=== PATIENT | female | born 1955 | race Caucasian/White ===

== ENCOUNTER 2017-06-14 04:26 | Observation (INO) | payer OTHER, SELFPAY ==
[2017-06-14 04:35] VITALS: BMI 48.5
[2017-06-14] MEDS ORDERED: Acetaminophen 325 MG TAB PO PRN (05:50)
[2017-06-14 06:00] LABS: Troponin I Less than 0.010 ng/mL (< 0.028)
[2017-06-14 08:06] VITALS: BP 141/69; TEMP 98.5
[2017-06-14 09:10] LABS: Troponin I Less than 0.010 ng/mL (< 0.028)
[2017-06-14] MEDS ORDERED: Nitroglycerin 0.4 MG TAB (25 Tab Bottle) PO PRN (09:47)
[2017-06-14] MEDS ORDERED: Ondansetron HCl/PF 4 MG/2 ML Vial IVP PRN (09:47)
[2017-06-14] MEDS ORDERED: Calcium Carbonate 500 MG ChewTAB PO PRN (09:47)
[2017-06-14] MEDS ORDERED: Furosemide 20 MG TAB PO PRN (09:51)
[2017-06-14] MEDS ORDERED: Dextrose 50% Abboject 50 ML SYRINGE SLOW IVP PRN (09:52)
[2017-06-14] MEDS ORDERED: Dextrose 5% in Water 1,000 ML IV PRN (09:52)
[2017-06-14] MEDS ORDERED: HumaLOG 300 UNITS/3 ML VIAL SC PRN (09:52)
[2017-06-14] MEDS ORDERED: Sodium Chloride 0.9% 1,000 ML IV SCH (10:00)
[2017-06-14] MEDS ORDERED: Aspirin 325 MG TAB PO SCH (11:15)
[2017-06-14 12:33] LABS: Troponin I Less than 0.010 ng/mL (< 0.028)
--- NOTE | 2017-06-14 14:21 | HP ---
CHIEF COMPLAINT: Chest pain, shortness of breath and on and off diarrhea for the last 3 weeks. PRIMARY CARE PHYSICIAN: Chris Moya M.D. HISTORY OF PRESENT ILLNESS: This is a 62-year-old pleasant lady who was apparently in her usual sta te of health. She suddenly had a feeling of choking and some chest pressure at 9:45. She called pa ramedics, they gave her some oxygen, which helped her a little bit, but the chest pain and shortness of breath went on till 2:00 in the morning. She was taken to an outside emergency room, where a CT scan of the chest with PE protocol was done which was negative for PE. Initial blood work was all normal. UA was normal. She was sent to our facility for further evaluation of the chest pain. The patient denies any nausea, vomiting, fever, or chills. Admits to diarrhea for the last 3 weeks on and off, explosive sometimes, associated with food. No fever, chills or blood in the stools. The p atient right now does not have any fever or chills as well. PAST MEDICAL HISTORY: Significant for migraine headaches, spinal stenosis, herniated disk at L3-L4, incontinence, arthritis, diabetes, hypertension, allergies, and GERD. MEDICATIONS: Include sumatriptan, metformin, lisinopril, Coreg, glimepiride, Lasix, topiramate - wh ich she takes on and off, metolazone - usually if she starts swelling up. PAST SURGICAL HISTORY: Carpal tunnel surgery, right knee arthroscopy, tonsillectomy and D\T\C in past. ALLERGIES: ERYTHROMYCIN, SULFA, HYDROCODONE and PENICILLIN. FAMILY HISTORY: Negative for diabetes and hypertension. SOCIAL HISTORY: Does not smoke, drink or do any recreational drugs. REVIEW OF SYSTEMS: Significant for chest pain, shortness of breath, and diarrhea. Otherwise, no fe evan, no chills, no headache, no appetite and latencies. No cough, no dysuria, no polyuria. No pako ry or mood changes. No neck pain. PHYSICAL EXAMINATION: VITAL SIGNS: Blood pressure is 141/65, afebrile, pulse is 93 and breathing comfortably on room air. GENERAL: Patient is lying in bed, in no apparent distress. HEENT: Atraumatic and normocephalic. Pupils are equally round and reactive to light. Extraocular movements are intact. Mucous membranes are moist. NECK: Supple. No JVD. CHEST: Breath sounds heard. There are no rales or rhonchi. HEART: S1 and S2 normal. No murmurs or gallops. ABDOMEN: Soft and obese. Bowel sounds are present. No tenderness. EXTREMITIES: No cyanosis, clubbing or edema. Distal pulses present. NEUROLOGICAL: Alert, awake and oriented. No cranial deficits. No sensorimotor deficits. LABORATORY DATA: WBC count is 8.2. Troponin 3 sets are negative. Potassium 4.3 and creatinine is 1.1. UA is negative. ASSESSMENT AND PLAN: 1. Chest pain associated with shortness of breath. We will rule out. I will do a stress test and trend troponins. Rule out acute coronary syndrome. However, patient has a history of allergies and could be reactive airway disease. We will put her on neb treatments and Claritin as well from home medications. If stress test is negative, we will discharge the patient with outpatient follow up w ith pulmonary function test. 2. Obesity with a BMI of 48.5. Patient has been counseled. 3. Diabetes. Poor control has been counseled. 4. Hypertension. Continue home medications, appears to be stable. 5. Low back pain secondary to herniated disk, stable. 6. Incontinence, stable. 7. Diarrhea. I will do stool cultures. 8. Gastroesophageal reflux disease, stable. 9. Sequential compression devices for deep venous thrombosis prophylaxis. I will follow the labs a nd do the need for.
[2017-06-14] MEDS ORDERED: Non-Formulary Item 1 EACH (Metformin Hcl [Metformin Hcl] 1,000 MG) PO SCH (17:00)
--- NOTE | 2017-06-14 19:15 | DIS ---
DATE OF ADMISSION: 06/14/2017 at 3:00 a.m. DATE OF DISCHARGE: 06/14/2017 at 12:00 p.m. DISCHARGE DIAGNOSES: 1. Shortness of breath, most probably secondary to reactive airway disease. 2. Atypical chest pain, possibly secondary to gastroesophageal reflux disease, resolved. 3. Obesity with a body mass index of 48.5. Patient has been counseled. 4. Chronic diarrhea. Outpatient workup. 5. History of migraine, stable. 6. History of spinal stenosis, stable. 7. History of herniated disk, stable. 8. History of incontinence, stable. 9. Arthritis, stable. 10. Diabetes, stable. 11. Hypertension, stable. 12. Allergy, stable. 13. Gastroesophageal reflux disease, stable. DISCHARGE MEDICATIONS: The patient's discharge medications include all home medications plus albute rol nebs, HFA 1 puff q.6 hours p.r.n. for shortness of breath, also darifenacin 7.5 p.o. daily and a spirin 81 mg p.o. daily. BRIEF HOSPITAL COURSE: This is a 62-year-old pleasant lady, who came into the hospital because of s udden onset shortness of breath. Please refer to my H\T\P for further details. By the time, she wa s evaluated at the emergency room at the outside facility, her shortness of breath resolved. CTA do ne there showed no PE. Patient's UA was negative. All workup was negative with troponin. She was sent to our hospital for further evaluation of atypical chest pain. The patient was put on telemetr y. Serial troponins were done, which were all negative. The patient was recommended a stress test, which she refused, as she could not lie down. Right now, she is clinically stable and feeling much better. Her shortness of breath and other symptoms have all resolved. She is medically stable to be discharged in my view with outpatient followup with PCP. I have recommended that she have a pulm onary function test as an outpatient and follow up with the table runner; I have also recommended t hat she follow up with her substance abuse prevention coordinator. Her EKG did show some inferior wall infarct with age indet erminate age. Right now, she is asymptomatic with negative troponins, and I am comfortable sending her home with outpatient workup. Patient was asked to come back to the emergency room in case sympt oms recur. I have also counseled her about losing weight and diet control about diabetes and high blood pressure. She understands all this. She is right now medically stable to be discharged and i s asked to follow up with PCP. She is asked to come back to the emergency room in case symptoms rec ur. Total time for this discharge took 35 minutes.
[2017-06-14] MEDS ORDERED: Famotidine 20 MG TAB PO SCH (21:00)
[2017-06-14] MEDS ORDERED: Carvedilol 6.25 MG TAB PO SCH (21:00)
[2017-06-14] MEDS ORDERED: Loratadine/Pseudoephedrine 10/240 mg Tablet PO PRN (23:59)
--- NOTE | 2017-06-15 06:20 | EKG ---
Test Reason : Blood Pressure : / mmHG Vent. Rate : 089 BPM Atrial Rate : 089 BPM P-R Int : 200 ms QRS Dur : 088 ms QT Int : 366 ms P-R-T Axes : 055 -10 043 degrees QTc Int : 445 ms Normal sinus rhythm Low voltage QRS (Borderline) Inferior infarct , age undetermined (possibly due to QS in III and aVF) Abnormal ECG No previous ECGs available Confirmed by MERCEDES SYKES ([id number]) on 06/15/2017 6:19:49 AM Referred By: SUSAN Confirmed By:MERCEDES SYKES
[2017-06-15] MEDS ORDERED: Glimepiride 1 MG TAB PO SCH ×2 (08:00)
[2017-06-15] MEDS ORDERED: Lisinopril 10 MG TAB PO SCH (09:00)
[2017-06-15] MEDS ORDERED: Aspirin 325 MG TAB PO SCH (09:00)
[2017-06-15] MEDS ORDERED: Loratadine/Pseudoephedrine 10/240 mg Tablet PO SCH (09:00)
== END 2017-06-14 13:33 | disposition home or self-care (01) ==
LOC: 2SW 04:26 → INTOOBSV 04:26
PROVIDERS: ADMIT Internal Medicine; ATTEND Internal Medicine
DX: R06.02 Shortness of breath (principal); R07.89 Other chest pain; K52.9 Noninfective gastroenteritis and colitis, unspecified; G43.909 Migraine, unspecified, not intractable, without status migrainosus; M19.90 Unspecified osteoarthritis, unspecified site; E11.9 Type 2 diabetes mellitus without complications; I10 Essential (primary) hypertension; K21.9 Gastro-esophageal reflux disease without esophagitis; M48.00 Spinal stenosis, site unspecified; R32 Unspecified urinary incontinence; M51.06 Intervertebral disc disorders with myelopathy, lumbar region; E66.9 Obesity, unspecified; Z68.42 Body mass index [BMI] 45.0-49.9, adult; Z88.1 Allergy status to other antibiotic agents; Z88.2 Allergy status to sulfonamides; Z88.0 Allergy status to penicillin; Z88.5 Allergy status to narcotic agent; Z79.84 Long term (current) use of oral hypoglycemic drugs; Z79.899 Other long term (current) drug therapy; Z98.890 Other specified postprocedural states
CPT/HCPCS: 36415; 36416; 84484; 93005; 93010; G0378

== ENCOUNTER 2018-12-30 15:30 | Outpatient (CLI) | payer OTHER ==
--- NOTE | 2018-12-30 16:07 | MMO ---
Bilateral MAMMO Bilat Screen [facility]. CLINICAL HISTORY: Patient is 63 years old and is seen for screening. The patient has the following family history of breast cancer: sister, at age 50. The patient has no personal history of cancer. VIEWS: The views performed were: bilateral craniocaudal with tomosynthesis and bilateral mediolateral oblique with tomosynthesis. FILMS COMPARED: The present examination has been compared to prior imaging studies performed on 10/16/1998, and at [facility] on 05/08/2003, 08/03/2004, 08/18/2004, 06/21/2006, 07/22/2007, 09/17/2008, 09/20/2009, 10/11/2010, 10/17/2011, 10/21/2012, 10/18/2015 and 04/10/2017. MAMMOGRAM FINDINGS: There are scattered fibroglandular densities. There are no suspicious masses, suspicious calcifications, or new areas of architectural distortion. IMPRESSION: THERE IS NO MAMMOGRAPHIC EVIDENCE OF MALIGNANCY. A ROUTINE FOLLOW-UP MAMMOGRAM IN 1 YEAR IS RECOMMENDED. THE RESULTS OF THIS EXAM WERE SENT TO THE PATIENT. ACR BI-RADS Category 1 - Negative MAMMOGRAPHY NOTE: 1. A negative mammogram report should not delay a biopsy if a dominant of clinically suspicious mass is present. 2. Approximately 10% to 15% of breast cancers are not detected by mammography. 3. Adenosis and dense breasts may obscure an underlying neoplasm.
== END 2018-12-30 15:31 | disposition home or self-care (01) ==
LOC: BICMAMMO 15:30
PROVIDERS: ATTEND Obstetrics & Gynecology
DX: Z12.31 Encounter for screening mammogram for malignant neoplasm of breast (principal); Z80.3 Family history of malignant neoplasm of breast
CPT/HCPCS: 77063; 77067

== ENCOUNTER 2020-06-29 15:12 | Outpatient (CLI) | payer OTHER ==
--- NOTE | 2020-06-29 16:25 | MMO ---
Bilateral MAMMO Bilat Screen [facility]. CLINICAL HISTORY: Patient is 65 years old and is seen for screening. The patient has the following family history of breast cancer: sister, at age 50. The patient has no personal history of cancer. VIEWS: The views performed were: bilateral craniocaudal with tomosynthesis and bilateral mediolateral oblique with tomosynthesis. FILMS COMPARED: The present examination has been compared to prior imaging studies performed at [facility] on 10/21/2012, 10/18/2015, 04/10/2017 and 12/30/2018. This study has been interpreted with the assistance of computer-aided detection. MAMMOGRAM FINDINGS: There are scattered fibroglandular densities. New 5 mm nodular density posterior mid right breast. In the left breast, there are no suspicious masses, calcifications or areas of architectural distortion. IMPRESSION: FINDING IN THE RIGHT BREAST REQUIRES ADDITIONAL EVALUATION. SPOT COMPRESSION IS RECOMMENDED. AN ULTRASOUND EXAM IS RECOMMENDED. ADDITIONAL IMAGING. THE RESULTS OF THIS EXAM WERE SENT TO THE PATIENT. ACR BI-RADS Category 0 - Incomplete: Need additional imaging evaluation. [facility] will notify the patient of the need for additional imaging services. MAMMOGRAPHY NOTE: 1. A negative mammogram report should not delay a biopsy if a dominant of clinically suspicious mass is present. 2. Approximately 10% to 15% of breast cancers are not detected by mammography. 3. Adenosis and dense breasts may obscure an underlying neoplasm. Reported by: DAVID MARVIN MD Electonically Signed: [id number]
== END 2020-06-29 15:13 | disposition home or self-care (01) ==
LOC: BICMAMMO 15:12
PROVIDERS: ATTEND Obstetrics & Gynecology
DX: Z12.31 Encounter for screening mammogram for malignant neoplasm of breast (principal); Z80.3 Family history of malignant neoplasm of breast
CPT/HCPCS: 77063; 77067

== ENCOUNTER 2020-07-09 09:53 | Outpatient (CLI) | payer OTHER ==
--- NOTE | 2020-07-09 10:58 | MMO ---
Right Breast MAMMO Unilat Diag [facility]. CLINICAL HISTORY: Patient is 65 years old and is seen for diagnostic exam. The patient has the following family history of breast cancer: sister, at age 50. The patient has no personal history of cancer. VIEWS: The views performed were: right craniocaudal spot compression with tomosynthesis; right mediolateral oblique spot compression with tomosynthesis; and right mediolateral with tomosynthesis. FILMS COMPARED: The present examination has been compared to prior imaging studies performed at [facility] on 04/10/2017, 12/30/2018, 06/29/2020 and 07/09/2020. This study has been interpreted with the assistance of computer-aided detection. MAMMOGRAM FINDINGS: There are scattered fibroglandular densities. There is an equal density, oval mass measuring 5 millimeters with circumscribed margins seen in the right breast at 7 o'clock. The mass was shown to be a cyst on ultrasound. There are no suspicious masses, suspicious calcifications, or new areas of architectural distortion. IMPRESSION: THERE IS NO MAMMOGRAPHIC EVIDENCE OF MALIGNANCY. A ROUTINE FOLLOW-UP MAMMOGRAM IN 1 YEAR IS RECOMMENDED. THE RESULTS OF THIS EXAM WERE SENT TO THE PATIENT. ACR BI-RADS Category 2 - Benign finding MAMMOGRAPHY NOTE: 1. A negative mammogram report should not delay a biopsy if a dominant of clinically suspicious mass is present. 2. Approximately 10% to 15% of breast cancers are not detected by mammography. 3. Adenosis and dense breasts may obscure an underlying neoplasm. Reported by: EDITH RIZVI MD Electonically Signed: [id number]
--- NOTE | 2020-07-09 10:59 | ULT ---
EXAM: US Breast Limited Rt PROVIDED CLINICAL HISTORY: Abnormal mammogram COMPARISON: Diagnostic mammogram performed concurrently FINDINGS: Limited sonographic interrogation was performed of the right breast in the region of mammographic con cern. A corresponding simple cyst is demonstrated. No concerning sonographic abnormality is evident. IMPRESSION: No concerning sonographic findings. Return to annual screening. BI-RADS 2 -- benign findings
== END 2020-07-09 09:54 | disposition home or self-care (01) ==
LOC: BICMAMMO 09:53
PROVIDERS: ATTEND Obstetrics & Gynecology
DX: R92.2 Inconclusive mammogram (principal)
CPT/HCPCS: G0279

== ENCOUNTER 2021-05-30 12:19 | Outpatient (CLI) | payer MEDICARE ==
[~2021-05-30 12:19] MED LIST: Iopamidol 370 76% 100 ML VIAL ONE
== END 2021-05-30 12:20 | disposition home or self-care (01) ==
LOC: BICCT 12:19
PROVIDERS: ATTEND Urology
DX: R31.29 Other microscopic hematuria (principal); K63.89 Other specified diseases of intestine
CPT/HCPCS: 74178

== ENCOUNTER 2021-06-24 09:32 | Outpatient (CLI) | payer MEDICARE ==
[2021-06-24] MEDS ORDERED: Iopamidol-370 76% 500 ML 1 ML ONE (09:42)
== END 2021-06-24 09:33 | disposition home or self-care (01) ==
LOC: CT 09:32
PROVIDERS: ATTEND Physician Assistant Medical
DX: R93.3 Abnormal findings on diagnostic imaging of other parts of digestive tract (principal); R91.8 Other nonspecific abnormal finding of lung field; R91.1 Solitary pulmonary nodule; I25.10 Atherosclerotic heart disease of native coronary artery without angina pectoris; I70.0 Atherosclerosis of aorta; J98.4 Other disorders of lung
CPT/HCPCS: 74178; 82565; Q9967

== ENCOUNTER 2021-07-18 11:26 | Outpatient (CLI) | payer MEDICARE | END 2021-07-18 11:27 | disposition home or self-care (01) | LOC: BICMAMMO 11:26 | PROVIDERS: ATTEND Obstetrics & Gynecology | DX: Z12.31 Encounter for screening mammogram for malignant neoplasm of breast (principal); Z80.3 Family history of malignant neoplasm of breast | CPT/HCPCS: 77063; 77067 ==

== ENCOUNTER 2022-02-01 07:56 | Outpatient (CLI) | payer MEDICARE | END 2022-02-01 07:57 | disposition home or self-care (01) | LOC: CT 07:56 | PROVIDERS: ATTEND Surgery | DX: K38.8 Other specified diseases of appendix (principal); K63.89 Other specified diseases of intestine | CPT/HCPCS: 74177; 82565 ==

== ENCOUNTER 2022-07-31 08:12 | Outpatient (CLI) | payer MEDICARE | END 2022-07-31 08:13 | disposition home or self-care (01) | LOC: BICMAMMO 08:12 | PROVIDERS: ATTEND Obstetrics & Gynecology | DX: Z12.31 Encounter for screening mammogram for malignant neoplasm of breast (principal); Z80.3 Family history of malignant neoplasm of breast | CPT/HCPCS: 77063; 77067 ==

== ENCOUNTER 2022-08-02 10:06 | Outpatient (CLI) | payer MEDICARE | END 2022-08-02 10:07 | disposition home or self-care (01) | LOC: BICCT 10:06 | PROVIDERS: ATTEND Surgery | DX: K38.9 Disease of appendix, unspecified (principal); K57.30 Diverticulosis of large intestine without perforation or abscess without bleeding; R91.1 Solitary pulmonary nodule | CPT/HCPCS: 74177; 82565 ==

== ENCOUNTER 2022-08-14 12:45 | Inpatient (IN) | payer MEDICARE ==
[2022-08-23] MEDS ORDERED: Bupivacaine/Epinephrine 0.25% 30 ML VIAL ONE (11:57)
[2022-08-23] MEDS ORDERED: Midazolam HCl 5 mg/5 ml Vial ONE (12:15)
[2022-08-23] MEDS ORDERED: Fentanyl 250 MCG/5 ML VIAL ONE (12:15)
[2022-08-23] MEDS ORDERED: cefOXitin 2 GM VIAL ONE (12:21)
[2022-08-23] MEDS ORDERED: Sodium Chloride 0.9% 100 ML ONE (12:21)
[2022-08-23] MEDS ORDERED: Midazolam HCl 2 mg/2 ml Vial ONE (12:23)
[2022-08-23 12:28] LABS: SARS-CoV-2 NAA Rapid Test Not Detected (NotDetected)
[2022-08-23] MEDS ORDERED: Levofloxacin 500 mg/D5W 100 ml Premix Bag ONE (12:33)
[2022-08-23] MEDS ORDERED: Rocuronium Bromide 10 MG/ML (10ML VIAL) ONE (12:43)
[2022-08-23] MEDS ORDERED: Metoclopramide HCl 10 MG/2 ML VIAL ONE (12:43)
[2022-08-23] MEDS ORDERED: Phenylephrine 10 MG/ML VIAL ONE (12:43)
[2022-08-23] MEDS ORDERED: Ondansetron PF 4 MG/2 ML Vial ONE (12:43)
[2022-08-23] MEDS ORDERED: ePHEDrine 50 MG/ML VIAL ONE (12:43)
[2022-08-23] MEDS ORDERED: Dexamethasone 20 MG/5 ML VIAL ONE (12:43)
[2022-08-23] MEDS ORDERED: NEOSTIGMINE 3 MG/3 ML SYR 3 MG/3 ML SYRINGE ONE (12:43)
[2022-08-23] MEDS ORDERED: GLYCOPYRROLATE/PF 0.2 MG/ML VIAL ONE (12:43)
[2022-08-23] MEDS ORDERED: PROPOFOL 200 MG/20 ML VIAL ONE (12:43)
[2022-08-23] MEDS ORDERED: Promethazine HCl 25 MG/ML VIAL ONE (14:47)
[2022-08-23] MEDS ORDERED: hydrALAZINE 20 MG/ML VIAL SLOW IVP PRN (15:00)
[2022-08-23] MEDS ORDERED: Promethazine HCl 25 MG/ML VIAL IM PRN ×3 (15:00→15:17)
[2022-08-23] MEDS ORDERED: Furosemide 20 MG TAB PO PRN (15:00)
[2022-08-23] MEDS ORDERED: Dextrose 50% Abboject 50 ML SYRINGE SLOW IVP PRN (15:00)
[2022-08-23] MEDS ORDERED: Dextrose 5% in Water 1,000 ML IV PRN (15:00)
[2022-08-23] MEDS ORDERED: Ondansetron PF 4 MG/2 ML Vial IVP PRN ×2 (15:00→15:17)
[2022-08-23] MEDS ORDERED: diphenhydrAMINE 50 MG/ML VIAL IM PRN (15:17)
[2022-08-23] MEDS ORDERED: diphenhydrAMINE 50 MG/ML VIAL IVP PRN (15:17)
[2022-08-23] MEDS ORDERED: Promethazine HCl 25 MG/ML VIAL IVPB PRN (15:17)
[2022-08-23] MEDS ORDERED: Naloxone HCl 0.4 mg/ml Vial IV PRN (15:17)
[2022-08-23] MEDS ORDERED: FENTANYL 500 MCG/10 ML VIAL 2,000 MCG in Sodium Chloride 0.9% 60 ML IV PRN (15:17)
[2022-08-23] MEDS ORDERED: Zolpidem Tartrate 5 MG TAB PO PRN (15:17)
[2022-08-23] MEDS ORDERED: Ondansetron HCl/PF 4 MG/2 ML Vial IVP PRN (15:17)
[2022-08-23] MEDS ORDERED: FENTANYL 50 MCG/ML 1 ML VIAL ONE (15:20)
[2022-08-23] MEDS ORDERED: Communication Order-Pharmacy FS SCH (15:30)
[2022-08-23] MEDS ORDERED: SUMAtriptan Succinate 50 MG TAB PO PRN (15:36)
[2022-08-23 18:48] VITALS: BMI 40.1
[2022-08-23] MEDS: D5 1/2 NS w/20 mEq KCL 1,000 ML IV SCH ×2 (19:33→23:30)
[2022-08-23] MEDS: Topiramate 25 MG TAB PO SCH (20:50)
[2022-08-23] MEDS: Famotidine/PF 20 mg/2ml Vial SLOW IVP SCH (20:50)
[2022-08-23] MEDS: Famotidine 20 MG TAB PO SCH (20:53)
[2022-08-23] MEDS: Carvedilol 6.25 MG TAB PO SCH (20:54)
[2022-08-23] MEDS: diphenhydrAMINE 25 MG CAP PO PRN (21:00)
[2022-08-24] MEDS: D5 1/2 NS w/20 mEq KCL 1,000 ML IV SCH ×3 (03:37→18:14)
[2022-08-24 06:03] LABS: #Lymphocytes 1.3 thou/uL (1.20-3.40); #Monocytes 1.3 thou/uL (0.11-0.59); #Neutrophils 13.3 thou/uL (1.40-6.50); %Eosinophils 0.1 % (0.0-10.0); %Lymphocytes 8.3 % (21.0-51.0); %Monocytes 8.4 % (0.0-10.0); %Neutrophils 83.2 % (42.0-75.0); Hemoglobin 10.9 g/dL (12.0-16.0); Mean Corpuscular HGB CONC 33.8 g/dL (32.0-36.0); Mean Corpuscular Volume 97.5 fl (78.0-98.0); Mean Platelet Volume 6.8 fL (7.4-10.4); Platelet Count 222 10x3/uL (130-400); RBC Distribution Width 11.8 % (11.5-14.5)
[2022-08-24 06:15] LABS: Anion Gap 11 mmol/L (10-20); BUN (Urea Nitrogen) 18 mg/dL (9.8-20.1); Calc. Creatinine Clearance 84 mL/min (70-130); Calcium 8.3 mg/dL (7.8-10.44); Carbon Dioxide 21 mmol/L (23-31); Chloride 106 mmol/L (98-107); Estimated GFR 51; Glucose 207 mg/dL (80-115); Potassium 4.2 mmol/L (3.5-5.1); Sodium 134 mmol/L (136-145)
[2022-08-24 07:12] LABS: Bacteria/HPF None Seen HPF (None Seen); Bilirubin Negative (Negative); Blood, Urine 2+ (Negative); Clarity Cloudy (Clear); Glucose, Urine (Dipstick) Normal (Negative); Ketone, Urine Negative (Negative); Leukocyte 25 Leu/uL (Negative); Nitrite Negative (Negative); Protein, Urine (Dipstick) 20 mg/dL (Neg-Trace); Specific Gravity, Urine 1.027 (1.002-1.036); Squamous Epithelial 0-3 HPF (0-3); Urobilinogen Normal mg/dL (Less than 2); pH, Urine 5.5 (5.0-9.0)
[2022-08-24] MEDS: Oxybutynin ER 5 MG TAB PO SCH (08:55)
[2022-08-24] MEDS: Lisinopril 10 MG TAB PO SCH (08:55)
[2022-08-24] MEDS: Carvedilol 6.25 MG TAB PO SCH ×2 (08:56→21:54)
[2022-08-24] MEDS: Famotidine 20 MG TAB PO SCH ×2 (08:56→21:56)
[2022-08-24] MEDS: Famotidine/PF 20 mg/2ml Vial SLOW IVP SCH ×2 (08:57→21:57)
[2022-08-24] MEDS: Topiramate 25 MG TAB PO SCH ×3 (08:57→21:59)
[2022-08-24] MEDS ORDERED: Topiramate [Trokendi Xr] 100 MG Cap.Er.24h PO SCH (09:00)
[2022-08-24] MEDS: diphenhydrAMINE 25 MG CAP PO PRN (22:16)
[2022-08-25] MEDS: D5 1/2 NS w/20 mEq KCL 1,000 ML IV SCH ×2 (02:04→16:43)
[2022-08-25] MEDS: Oxybutynin ER 5 MG TAB PO SCH (09:30)
[2022-08-25] MEDS: Famotidine/PF 20 mg/2ml Vial SLOW IVP SCH ×2 (09:31→20:30)
[2022-08-25] MEDS: Carvedilol 6.25 MG TAB PO SCH ×2 (09:31→20:30)
[2022-08-25] MEDS: Lisinopril 10 MG TAB PO SCH (09:31)
[2022-08-25] MEDS: Famotidine 20 MG TAB PO SCH ×2 (09:31→20:30)
[2022-08-25] MEDS: Topiramate 25 MG TAB PO SCH ×2 (09:32→20:35)
[2022-08-25] MEDS ORDERED: FENTANYL 50 MCG/ML 1 ML VIAL SLOW IVP PRN (12:12)
[2022-08-25] MEDS: traMADol HCl 50 MG TAB PO PRN (18:55)
[2022-08-26] MEDS: traMADol HCl 50 MG TAB PO PRN ×2 (04:09→20:41)
[2022-08-26] MEDS: Topiramate 25 MG TAB PO SCH ×2 (08:58→20:44)
[2022-08-26] MEDS: Carvedilol 6.25 MG TAB PO SCH ×2 (08:59→20:43)
[2022-08-26] MEDS: Famotidine 20 MG TAB PO SCH ×2 (08:59→20:42)
[2022-08-26] MEDS: Lisinopril 10 MG TAB PO SCH (08:59)
[2022-08-26] MEDS: Oxybutynin ER 5 MG TAB PO SCH (09:00)
[2022-08-26] MEDS: Famotidine/PF 20 mg/2ml Vial SLOW IVP SCH ×2 (09:00→20:44)
[2022-08-26] MEDS: HumaLOG 300 UNITS/3 ML VIAL SC PRN (18:00)
[2022-08-27] MEDS ORDERED: Nitroglycerin 0.4 MG TAB (25 Tab Bottle) ONE (05:40)
[2022-08-27] MEDS: HumaLOG 300 UNITS/3 ML VIAL SC PRN (06:03)
[2022-08-27] MEDS: traMADol HCl 50 MG TAB PO PRN ×2 (06:08→17:03)
[2022-08-27] MEDS: Carvedilol 6.25 MG TAB PO SCH ×2 (09:27→21:03)
[2022-08-27] MEDS: Famotidine 20 MG TAB PO SCH ×2 (09:27→21:02)
[2022-08-27] MEDS: Lisinopril 10 MG TAB PO SCH (09:27)
[2022-08-27] MEDS: Oxybutynin ER 5 MG TAB PO SCH (09:27)
[2022-08-27] MEDS: Famotidine/PF 20 mg/2ml Vial SLOW IVP SCH ×2 (09:28→21:03)
[2022-08-27] MEDS: Topiramate 25 MG TAB PO SCH ×2 (09:28→21:03)
[2022-08-28] MEDS: Oxybutynin ER 5 MG TAB PO SCH (09:06)
[2022-08-28] MEDS: Carvedilol 6.25 MG TAB PO SCH ×2 (09:07→21:44)
[2022-08-28] MEDS: Famotidine 20 MG TAB PO SCH ×2 (09:07→21:45)
[2022-08-28] MEDS: Lisinopril 10 MG TAB PO SCH (09:07)
[2022-08-28] MEDS: Famotidine/PF 20 mg/2ml Vial SLOW IVP SCH ×2 (09:08→21:46)
[2022-08-28] MEDS: Topiramate 25 MG TAB PO SCH ×2 (09:09→21:46)
[2022-08-29] MEDS: Famotidine/PF 20 mg/2ml Vial SLOW IVP SCH ×2 (07:55→19:19)
[2022-08-29] MEDS: Oxybutynin ER 5 MG TAB PO SCH (07:59)
[2022-08-29] MEDS: Carvedilol 6.25 MG TAB PO SCH ×2 (07:59→20:41)
[2022-08-29] MEDS: Famotidine 20 MG TAB PO SCH ×2 (07:59→20:41)
[2022-08-29] MEDS: traMADol HCl 50 MG TAB PO PRN ×2 (07:59→16:33)
[2022-08-29] MEDS: Lisinopril 10 MG TAB PO SCH (08:00)
[2022-08-29] MEDS: Topiramate 25 MG TAB PO SCH ×2 (08:00→19:19)
[2022-08-29] MEDS: HumaLOG 300 UNITS/3 ML VIAL SC PRN (12:08)
[2022-08-30] MEDS: HumaLOG 300 UNITS/3 ML VIAL SC PRN (06:01)
[2022-08-30] MEDS: traMADol HCl 50 MG TAB PO PRN ×2 (06:51→21:27)
[2022-08-30] MEDS: Famotidine 20 MG TAB PO SCH ×2 (10:21→21:27)
[2022-08-30] MEDS: Topiramate 25 MG TAB PO SCH ×2 (10:21→21:28)
[2022-08-30] MEDS: Oxybutynin ER 5 MG TAB PO SCH (10:21)
[2022-08-30] MEDS: Carvedilol 6.25 MG TAB PO SCH ×2 (10:22→21:27)
[2022-08-30] MEDS: Lisinopril 10 MG TAB PO SCH (10:22)
[2022-08-30] MEDS: Famotidine/PF 20 mg/2ml Vial SLOW IVP SCH ×2 (10:24→21:30)
[2022-08-30] MEDS ORDERED: Milk Of Magnesia 30 ML UDCUP PO SCH (14:45)
[2022-08-31] MEDS: Carvedilol 6.25 MG TAB PO SCH (10:17)
[2022-08-31] MEDS: Topiramate 25 MG TAB PO SCH (10:17)
[2022-08-31] MEDS: Oxybutynin ER 5 MG TAB PO SCH (10:17)
[2022-08-31] MEDS: Famotidine 20 MG TAB PO SCH (10:19)
[2022-08-31] MEDS: Famotidine/PF 20 mg/2ml Vial SLOW IVP SCH (10:19)
[2022-08-31] MEDS: Lisinopril 10 MG TAB PO SCH (10:19)
[2022-08-31 13:20] VITALS: BP 118/66; TEMP 98.6
== END 2022-08-31 16:50 | disposition home or self-care (01) | DRG 329 ==
LOC: SURG A 08-23 10:12
PROVIDERS: ADMIT Surgery; ATTEND Surgery
PROC: 0DBF0ZZ Excision of Right Large Intestine, Open Approach (ICD-10-PCS; principal; 2022-08-23)
PROC: 0DJD4ZZ Inspection of Lower Intestinal Tract, Percutaneous Endoscopic Approach (ICD-10-PCS; 2022-08-23)
DX: D12.0 Benign neoplasm of cecum (principal); K35.32 Acute appendicitis with perforation, localized peritonitis, and gangrene, without abscess; K56.7 Ileus, unspecified; Z68.41 Body mass index [BMI] 40.0-44.9, adult; Z20.822 Contact with and (suspected) exposure to COVID-19; Z96.653 Presence of artificial knee joint, bilateral; G43.909 Migraine, unspecified, not intractable, without status migrainosus; I10 Essential (primary) hypertension; E78.5 Hyperlipidemia, unspecified; E66.01 Morbid (severe) obesity due to excess calories; M51.26 Other intervertebral disc displacement, lumbar region; Z90.89 Acquired absence of other organs; Z88.6 Allergy status to analgesic agent; Z88.4 Allergy status to anesthetic agent; Z88.1 Allergy status to other antibiotic agents; Z88.2 Allergy status to sulfonamides; Z88.8 Allergy status to other drugs, medicaments and biological substances; Z53.31 Laparoscopic surgical procedure converted to open procedure; Z79.899 Other long term (current) drug therapy; Z79.1 Long term (current) use of non-steroidal anti-inflammatories (NSAID)
CPT/HCPCS: 36415; 36416; 80048; 81001; 83036; 85025; 87811; 88307; 93005; 93010; A4649; J0694; J1100; J1815; J1956; J2250; J2370; J2405; J2550; J2704; J2765; J3010; J3480; J3490; U0002

== ENCOUNTER 2022-08-21 09:46 | Outpatient (CLI) | payer MEDICARE ==
[2022-08-21 13:17] LABS: #Basophils 0.1 10x3/uL (0.0-0.2); #Eosinphils 0.6 10x3/uL (0.0-0.5); #Monocytes 0.5 10x3/uL (0.0-1.1); #Neutrophils 4.2 10x3/uL (1.5-8.4); %Basophils 0.8 % (0.0-2.0); %Eosinophils 8.6 % (0.0-6.0); %Monocytes 6.7 % (0.0-10.0); %Neutrophils 59.5 % (40.0-75.0); Hemoglobin 13.4 g/dL (12.0-15.5); Mean Corpuscular HGB CONC 33.2 g/dL (32.0-36.0); Mean Corpuscular Hemoglobin 31.4 pg (27.0-33.0); Mean Corpuscular Volume 94.6 fl (81.6-98.3); Platelet Count 265 10x3/uL (150-450); RBC Distribution Width 13.1 % (11.5-14.5); Red Blood Cell (RBC) Count 4.27 10x6/uL (3.90-5.03); White Blood Cell (WBC) Count 7.1 10x3/uL (3.5-10.5)
[2022-08-21 13:26] LABS: Anion Gap 15 mmol/L (10-20); BUN (Urea Nitrogen) 17 mg/dL (9.8-20.1); Calc. Creatinine Clearance 0 mL/min (70-130); Calcium 9.7 mg/dL (7.8-10.44); Carbon Dioxide 26 mmol/L (23-31); Chloride 103 mmol/L (98-107); Estimated GFR 61; Glucose 147 mg/dL (80-115); Sodium 140 mmol/L (136-145)
[2022-08-21 17:20] LABS: Hemoglobin A1c 6.2 % (4.0-6.0)
== END 2022-08-21 09:47 | disposition home or self-care (01) ==
LOC: LABBT 09:46
PROVIDERS: ATTEND Family Medicine
DX: Z01.818 Encounter for other preprocedural examination (principal); K63.89 Other specified diseases of intestine
CPT/HCPCS: 80048; 83036; 85025; 93005; 93010

== ENCOUNTER 2022-09-29 15:31 | Emergency (ER) | payer MEDICARE ==
[2022-09-29 16:11] LABS: #Eosinphils 0.2 thou/uL (0.0-0.7); #Lymphocytes 1.3 thou/uL (1.20-3.40); #Monocytes 0.8 thou/uL (0.11-0.59); #Neutrophils 12.2 thou/uL (1.40-6.50); %Basophils 0.1 % (0.0-1.0); %Eosinophils 1.3 % (0.0-10.0); %Lymphocytes 8.9 % (21.0-51.0); %Monocytes 5.2 % (0.0-10.0); %Neutrophils 84.5 % (42.0-75.0); Hemoglobin 11.4 g/dL (12.0-16.0); Mean Corpuscular Hemoglobin 29.8 pg (27.0-31.0); Mean Corpuscular Volume 93.2 fl (78.0-98.0); Mean Platelet Volume 6.3 fL (7.4-10.4); Platelet Count 409 10x3/uL (130-400); RBC Distribution Width 13.2 % (11.5-14.5); Red Blood Cell (RBC) Count 3.83 mill/uL (4.20-5.40); White Blood Cell (WBC) Count 14.5 10x3/uL (4.8-10.8)
[2022-09-29 16:21] LABS: INR-International Normal Ratio 1.2; PTT 26.2 sec (22.9-36.1); Prothrombin Time 16.2 sec (12.0-14.7)
[2022-09-29 16:33] LABS: ALT (SGPT) 10 U/L (8-55); AST (SGOT) 12 U/L (5-34); Albumin 3.2 g/dL (3.4-4.8); Alkaline Phosphatase 69 U/L (40-110); Anion Gap 15 mmol/L (10-20); BUN (Urea Nitrogen) 12 mg/dL (9.8-20.1); Bilirubin, Total 0.9 mg/dL (0.2-1.2); Calc. Creatinine Clearance 0 mL/min (70-130); Calcium 9.5 mg/dL (7.8-10.44); Carbon Dioxide 26 mmol/L (23-31); Chloride 98 mmol/L (98-107); Estimated GFR 67; Globulin 3.8 g/dL (2.4-3.5); Glucose 195 mg/dL (80-115); Potassium 3.9 mmol/L (3.5-5.1); Sodium 135 mmol/L (136-145)
== END 2022-09-29 17:11 | disposition home or self-care (01) ==
LOC: ERS 15:31
DX: K91.840 Postprocedural hemorrhage of a digestive system organ or structure following a digestive system procedure (principal); I10 Essential (primary) hypertension; E11.9 Type 2 diabetes mellitus without complications
CPT/HCPCS: 36415; 80053; 85025; 85610; 85730; 99283

== ENCOUNTER 2022-10-01 19:56 | Inpatient (IN) | payer MEDICARE ==
[~2022-10-01 19:56] MED LIST changes: -Iopamidol 370 76% 100 ML VIAL ONE; +Iopamidol-370 76% 500 ML 1 ML ONE
[2022-10-01 20:56] LABS: #Eosinphils 0.5 thou/uL (0.0-0.7); #Lymphocytes 2.1 thou/uL (1.20-3.40); #Monocytes 0.7 thou/uL (0.11-0.59); %Basophils 0.3 % (0.0-1.0); %Lymphocytes 22.1 % (21.0-51.0); %Neutrophils 64.7 % (42.0-75.0); Hemoglobin 11.3 g/dL (12.0-16.0); Mean Corpuscular HGB CONC 32.4 g/dL (32.0-36.0); Mean Corpuscular Hemoglobin 30.3 pg (27.0-31.0); Mean Corpuscular Volume 93.7 fl (78.0-98.0); Mean Platelet Volume 6.5 fL (7.4-10.4); Platelet Count 499 10x3/uL (130-400); RBC Distribution Width 13.4 % (11.5-14.5); Red Blood Cell (RBC) Count 3.73 mill/uL (4.20-5.40); White Blood Cell (WBC) Count 9.3 10x3/uL (4.8-10.8)
[2022-10-01 21:17] LABS: ALT (SGPT) 10 U/L (8-55); AST (SGOT) 15 U/L (5-34); Albumin 3.6 g/dL (3.4-4.8); Alkaline Phosphatase 63 U/L (40-110); Anion Gap 17 mmol/L (10-20); BUN (Urea Nitrogen) 13 mg/dL (9.8-20.1); Bilirubin, Total 0.4 mg/dL (0.2-1.2); Calc. Creatinine Clearance 0 mL/min (70-130); Calcium 9.9 mg/dL (7.8-10.44); Carbon Dioxide 24 mmol/L (23-31); Chloride 103 mmol/L (98-107); Estimated GFR 67; Globulin 3.7 g/dL (2.4-3.5); Glucose 109 mg/dL (80-115); Potassium 3.5 mmol/L (3.5-5.1); Protein, Total 7.3 g/dL (5.8-8.1); Sodium 140 mmol/L (136-145)
[2022-10-01 21:32] LABS: CRP (Inflammatory) 4.31 mg/dL (= or < 0.5)
[2022-10-01] MEDS ORDERED: Clindamycin/D5W 900 mg/50 ml Premix Bag ONE (21:51)
[2022-10-01 21:57] LABS: Actual Bicarbonate (HCO3v) 25 mEq/L (22-28); Analyzer IN Cardio ER; Base Excess 1.4 mEq/L (-2.0 to +3.0); Calcium, Ionized (venous) 1.09 mmol/L (1.16-1.32); Chloride (VBG) 104 mmol/L (98-106); Hemoglobin (Hb) 12.9 g/dL (11.7-16.1); Potassium (VBG) 3.74 mmol/L (3.70-5.30); Sodium 139.3 mmol/L (133-146); pH (venous) 7.46 (7.32-7.43)
[2022-10-02] MEDS ORDERED: TETANUS, DIPHTHERIA TOX,ADULT (TDVAX) 0.5 ML VIAL IM ONE (00:55)
[2022-10-02] MEDS ORDERED: Insulin Regular 300 UNITS/3 ML VIAL SC PRN (00:55)
[2022-10-02] MEDS ORDERED: Dextrose 50% Abboject 50 ML SYRINGE SLOW IVP PRN (00:55)
[2022-10-02] MEDS ORDERED: Acetaminophen 325 MG TAB PO PRN (00:55)
[2022-10-02] MEDS ORDERED: Ondansetron ODT 4 MG TAB PO PRN (00:55)
[2022-10-02] MEDS ORDERED: Promethazine HCl 25 MG/ML VIAL IM PRN (00:55)
[2022-10-02] MEDS ORDERED: Dextrose 5% in Water 1,000 ML IV PRN (00:55)
[2022-10-02 02:41] VITALS: BMI 39.0
[2022-10-02] MEDS: Sodium Chloride 0.9% 1,000 ML IV SCH ×3 (04:01→18:10)
[2022-10-02] MEDS: Carvedilol 6.25 MG TAB PO SCH ×2 (09:22→18:11)
[2022-10-02] MEDS ORDERED: Lidocaine 1% (PF) 30 ML VIAL NERVE BLCK SCH (13:15)
[2022-10-03] MEDS: Sodium Chloride 0.9% 1,000 ML IV SCH ×3 (02:10→17:41)
[2022-10-03] MEDS ORDERED: ALIROCUMAB 150 MG/ML FS SCH (09:15)
[2022-10-03] MEDS: Carvedilol 6.25 MG TAB PO SCH ×2 (09:15→17:39)
[2022-10-03] MEDS: Polyethylene Glycol 3350 17 GM Packet PO SCH (09:15)
[2022-10-03] MEDS ORDERED: Loratadine/Pseudoephedrine 10/240 mg Tablet PO PRN (09:28)
[2022-10-04] MEDS: Sodium Chloride 0.9% 1,000 ML IV SCH ×3 (01:53→17:03)
[2022-10-04] MEDS: Cholecalciferol 1,000 UNITS (25 MCG) TAB PO SCH (09:29)
[2022-10-04] MEDS: Carvedilol 6.25 MG TAB PO SCH ×2 (09:29→17:02)
[2022-10-04] MEDS: Polyethylene Glycol 3350 17 GM Packet PO SCH (09:30)
[2022-10-04] MEDS: Vit A,C & E/Lutein/Minerals Tablet PO SCH (09:30)
[2022-10-04] MEDS: Glimepiride 1 MG TAB PO SCH (09:30)
[2022-10-04] MEDS: Lisinopril 10 MG TAB PO SCH (09:30)
[2022-10-04] MEDS: Fentanyl 100 MCG/2 ML VIAL SLOW IVP PRN (10:50)
[2022-10-04] MEDS: traMADol HCl 50 MG TAB PO PRN (10:50)
[2022-10-04] MEDS ORDERED: Furosemide 20 MG TAB PO PRN (16:14)
[2022-10-05] MEDS: Sodium Chloride 0.9% 1,000 ML IV SCH ×3 (02:34→18:29)
[2022-10-05] MEDS ORDERED: Fluconazole 100 MG TAB PO SCH (09:00)
[2022-10-05] MEDS: Polyethylene Glycol 3350 17 GM Packet PO SCH (09:38)
[2022-10-05] MEDS: Vit A,C & E/Lutein/Minerals Tablet PO SCH (09:39)
[2022-10-05] MEDS: Glimepiride 1 MG TAB PO SCH (09:39)
[2022-10-05] MEDS: Cholecalciferol 1,000 UNITS (25 MCG) TAB PO SCH (09:40)
[2022-10-05] MEDS: Carvedilol 6.25 MG TAB PO SCH ×2 (09:44→18:32)
[2022-10-05] MEDS: Lisinopril 10 MG TAB PO SCH (09:45)
[2022-10-05] MEDS ORDERED: PEPTIVA PO SCH (21:00)
[2022-10-05] MEDS: Doxycycline 100 MG CAP PO SCH (21:17)
[2022-10-06] MEDS: Sodium Chloride 0.9% 1,000 ML IV SCH (03:53)
[2022-10-06] MEDS ORDERED: Topiramate [Trokendi Xr] 100 MG Cap.Er.24h PO SCH (09:00)
[2022-10-06] MEDS: Fentanyl 100 MCG/2 ML VIAL SLOW IVP PRN (09:44)
[2022-10-06] MEDS: Doxycycline 100 MG CAP PO SCH (10:26)
[2022-10-06] MEDS: Vit A,C & E/Lutein/Minerals Tablet PO SCH (10:27)
[2022-10-06] MEDS: Lisinopril 10 MG TAB PO SCH (10:27)
[2022-10-06] MEDS: Cholecalciferol 1,000 UNITS (25 MCG) TAB PO SCH (10:27)
[2022-10-06] MEDS: traMADol HCl 50 MG TAB PO PRN (10:28)
[2022-10-06] MEDS: Glimepiride 1 MG TAB PO SCH (10:31)
[2022-10-06] MEDS: Carvedilol 6.25 MG TAB PO SCH (10:32)
[2022-10-06] MEDS: Polyethylene Glycol 3350 17 GM Packet PO SCH (10:35)
[2022-10-06 13:05] VITALS: BP 113/65; TEMP 97.6
== END 2022-10-06 12:40 | DRG 920 ==
LOC: ERS 19:56 → SJJU 10-02 00:59 → OBSVTOIN 10-03 15:11
PROVIDERS: ADMIT Surgery; ATTEND Surgery
DX: L76.34 Postprocedural seroma of skin and subcutaneous tissue following other procedure (principal); T81.41XA Infection following a procedure, superficial incisional surgical site, initial encounter; E66.01 Morbid (severe) obesity due to excess calories; R32 Unspecified urinary incontinence; B95.62 Methicillin resistant Staphylococcus aureus infection as the cause of diseases classified elsewhere; B96.20 Unspecified Escherichia coli [E. coli] as the cause of diseases classified elsewhere; Y83.8 Other surgical procedures as the cause of abnormal reaction of the patient, or of later complication, without mention of misadventure at the time of the procedure; I10 Essential (primary) hypertension; E11.9 Type 2 diabetes mellitus without complications; Z68.39 Body mass index [BMI] 39.0-39.9, adult; Z90.49 Acquired absence of other specified parts of digestive tract; Z79.899 Other long term (current) drug therapy; Z88.1 Allergy status to other antibiotic agents; Z88.0 Allergy status to penicillin; Z88.2 Allergy status to sulfonamides; Z88.8 Allergy status to other drugs, medicaments and biological substances
CPT/HCPCS: 36415; 36416; 74177; 80053; 82805; 83605; 83690; 85025; 86140; 87040; 87070; 87077; 87186; 87205; 96365; 97139; J3010; J3490; J7050; Q9967

== ENCOUNTER 2023-01-18 14:44 | Outpatient (CLI) | payer MEDICARE | END 2023-01-18 14:45 | disposition home or self-care (01) | LOC: ULT 14:44 | PROVIDERS: ATTEND Nurse Practitioner Family | DX: T81.89XA Other complications of procedures, not elsewhere classified, initial encounter (principal) | CPT/HCPCS: 71046; 93306 ==

== ENCOUNTER 2023-06-21 22:06 | Emergency (ER) | payer MEDICARE ==
[2023-06-21 22:46] LABS: #Basophils 0.1 thou/uL (0.0-0.2); #Eosinphils 0.2 thou/uL (0.0-0.7); #Monocytes 0.8 thou/uL (0.11-0.59); #Neutrophils 7.2 thou/uL (1.40-6.50); %Basophils 0.5 % (0.0-1.0); %Eosinophils 2.2 % (0.0-10.0); %Lymphocytes 12.6 % (21.0-51.0); %Monocytes 8.2 % (0.0-10.0); %Neutrophils 76.3 % (42.0-75.0); Hematocrit 42.4 % (36.0-47.0); Hemoglobin 14.1 g/dL (12.0-16.0); Mean Corpuscular HGB CONC 33.3 g/dL (32.0-36.0); Mean Corpuscular Hemoglobin 31.1 pg (27.0-31.0); Mean Corpuscular Volume 93.6 fl (78.0-98.0); Mean Platelet Volume 8.9 fL (7.4-10.4); Platelet Count 255 10x3/uL (130-400); RBC Distribution Width 12.5 % (11.5-14.5); Red Blood Cell (RBC) Count 4.53 mill/uL (4.20-5.40); White Blood Cell (WBC) Count 9.5 10x3/uL (4.8-10.8)
[2023-06-21 23:10] LABS: ALT (SGPT) 11 U/L (8-55); AST (SGOT) 14 U/L (5-34); Albumin 4.4 g/dL (3.4-4.8); Alkaline Phosphatase 100 U/L (40-110); Anion Gap 15 mmol/L (10-20); BUN (Urea Nitrogen) 15 mg/dL (9.8-20.1); Bilirubin, Total 0.6 mg/dL (0.2-1.2); Calc. Creatinine Clearance 0 mL/min (70-130); Calcium 9.3 mg/dL (7.8-10.44); Carbon Dioxide 28 mmol/L (23-31); Chloride 100 mmol/L (98-107); Estimated GFR 67; Globulin 2.5 g/dL (2.4-3.5); Glucose 280 mg/dL (80-115); Potassium 3.7 mmol/L (3.5-5.1); Protein, Total 6.9 g/dL (5.8-8.1); Sodium 139 mmol/L (136-145)
[2023-06-21 23:13] LABS: Troponin I Less than 0.010 ng/mL (< 0.028)
[2023-06-21] MEDS ORDERED: Acetaminophen 500 MG TAB ONE (23:21)
[2023-06-22] MEDS ORDERED: Ketorolac Tromethamine 30 MG/ML VIAL ONE (01:12)
== END 2023-06-22 01:25 | disposition home or self-care (01) ==
LOC: ERS 22:06
DX: M54.2 Cervicalgia (principal); R51.9 Headache, unspecified; E11.9 Type 2 diabetes mellitus without complications; Z79.84 Long term (current) use of oral hypoglycemic drugs
CPT/HCPCS: 36415; 70450; 72125; 80053; 84484; 85025; 93005; 96374; J1885